=== PATIENT | male | born 1955 | race Hispanic/Latino ===

== ENCOUNTER 2018-03-10 16:10 | Emergency (ER) | payer MEDICAID ==
[2018-03-10 16:12] VITALS: BP 145/81; PULSE 77; RESP 15; TEMP 98.3; O2SAT 98
--- NOTE | 2018-03-10 17:07 | C.PDOC ---
History Of Present Illness 62 year old male patient with hx of alcohol abuse and HTN presents to the ER with c/o swelling and bruising of right ankle. Patient found his right ankle suddenly itching x3 weeks ago. Patient denies weakness and numbness. Chief Complaint (Nursing): Lower Extremity Problem/Injury History Per: Patient History/Exam Limitations: no limitations Onset/Duration Of Symptoms: Days (x3 weeks) Current Symptoms Are (Timing): Still Present Past Medical History Reviewed: Historical Data, Nursing Documentation, Vital Signs Vital Signs: Last Vital Signs Temp 98.3 F 03/10/18 16:24 Pulse 77 03/10/18 16:24 Resp 15 03/10/18 16:24 BP 145/81 03/10/18 16:24 Pulse Ox 98 03/10/18 17:07 - Medical History PMH: HTN Family History: States: No Known Family Hx - Social History Hx Alcohol Use: No Hx Substance Use: No - Immunization History Hx Tetanus Toxoid Vaccination: No Hx Influenza Vaccination: No Hx Pneumococcal Vaccination: No Review Of Systems Except As Marked, All Systems Reviewed And Found Negative. Musculoskeletal: Positive for: Other (itching and bruising on right ankle ) Neurological: Negative for: Weakness, Numbness Physical Exam - Physical Exam Appears: Non-toxic, No Acute Distress Skin: Normal Color, Warm, Dry Cardiovascular: Rhythm Regular Respiratory: Normal Breath Sounds Extremity: Normal ROM (x4), No Tenderness, Pedal Edema (+1 ), No Calf Tenderness , No Deformity, No Swelling, Other (bruised; exfoliation (from scratch ballesteros); no vesicles or discharge ) Pulses: Left Dorsalis Pedis: Normal, Right Dorsalis Pedis: Normal Neurological/Psych: Oriented x3, Normal Speech ED Course And Treatment O2 Sat by Pulse Oximetry: 98 (RA) Pulse Ox Interpretation: Normal Medical Decision Making Medical Decision Making: Impression: cellulitis and dermatitis Plans: -- Keflex Reassess: Patient is resting comfortably. Tolerating PO. Disposition - Disposition Referrals: [facility] [place] [facility] [place] [facility] at [facility] [Outside] [facility] at [place] [Outside] Disposition Time: 17:06 Additional Instructions: Follow up with your pcp in a few days and take the keflex as directed and apply the lotrisone twice daily. Prescriptions: Cephalexin [cephalexin] 500 mg PO Q8 #21 cap Clotrimazole/Betamethasone [Lotrisone] 30 g TOP Q12 #1 bottle Instructions: Contact Dermatitis (DC) Forms: [employer] (Beninese) - Clinical Impression Clinical Impression: Dermatitis - Scribe Statement The provider has reviewed the documentation as recorded by the Scribe Domi Swift Provider Attestation: All medical record entries made by the Scribe were at my direction and personally dictated by me. I have reviewed the chart and agree that the record accurately reflects my personal performance of the history, physical exam, medical decision making, and the department course for this patient. I have also personally directed, reviewed, and agree with the discharge instructions and disposition.
--- NOTE | 2018-03-10 17:08 | C.PDOC ---
History Of Present Illness 62 year old male patient with hx of alcohol abuse and HTN presents to the ER with c/o swelling and bruising of right ankle. Patient found his right ankle suddenly itching x3 weeks ago. Patient denies weakness and numbness. Chief Complaint (Nursing): Lower Extremity Problem/Injury History Per: Patient History/Exam Limitations: no limitations Onset/Duration Of Symptoms: Days (x3 weeks) Current Symptoms Are (Timing): Still Present Past Medical History Reviewed: Historical Data, Nursing Documentation, Vital Signs Vital Signs: Last Vital Signs Temp 98.3 F 03/10/18 16:24 Pulse 77 03/10/18 16:24 Resp 15 03/10/18 16:24 BP 145/81 03/10/18 16:24 Pulse Ox 98 03/10/18 16:24 - Medical History PMH: HTN Other PMH: EtOH abuse Family History: States: No Known Family Hx - Social History Hx Alcohol Use: No Hx Substance Use: No - Immunization History Hx Tetanus Toxoid Vaccination: No Hx Influenza Vaccination: No Hx Pneumococcal Vaccination: No Review Of Systems Except As Marked, All Systems Reviewed And Found Negative. Musculoskeletal: Positive for: Other (right ankle bruising adn swelling) Neurological: Negative for: Weakness, Numbness Physical Exam - Physical Exam Appears: Non-toxic, No Acute Distress Skin: Warm, Dry, Other Head: Normacephalic Cardiovascular: Rhythm Regular Respiratory: Normal Breath Sounds Extremity: No Tenderness, Pedal Edema (+1), No Deformity, No Swelling, Other ( scratch ballesteros on rigth ankle; bruising; no vesicles, no discharge. ) Pulses: Left Dorsalis Pedis: Normal, Right Dorsalis Pedis: Normal Neurological/Psych: Oriented x3, Normal Speech ED Course And Treatment O2 Sat by Pulse Oximetry: 98 (RA) Pulse Ox Interpretation: Normal Medical Decision Making Medical Decision Making: Impression: cellulitis and dermatitis Plans: -- Keflex Reassess: Patient is resting comfortably. Tolerating PO. Disposition - Disposition - Scribe Statement The provider has reviewed the documentation as recorded by the Cristal Duron Do Provider Attestation: All medical record entries made by the Scribe were at my direction and personally dictated by me. I have reviewed the chart and agree that the record accurately reflects my personal performance of the history, physical exam, medical decision making, and the department course for this patient. I have also personally directed, reviewed, and agree with the discharge instructions and disposition.
== END 2018-03-10 17:26 | disposition home or self-care (01) ==
LOC: C.ER 16:10
DX: L30.9 Dermatitis, unspecified (principal)